=== PATIENT | female | born 1970 | race African-American/Black ===

== ENCOUNTER 2023-10-22 20:56 | Emergency (ER) | payer BC, OTHER, SELFPAY ==
[2023-10-22] VITALS (7 sets, daily range): BP systolic 133–144; BP diastolic 90–95; PULSE 65–96; RESP 13–18; TEMP 36.5–36.7; O2SAT 99–100
--- NOTE | ~2023-10-22 | XR_ITS ---
EXAMINATION: XR chest 2V Exam Date/Time: 10/22/2023 21:13 CDT HISTORY: cp Comparison: None. RESULT: Lines, tubes, and devices: None. Lungs and pleura: Clear. Cardiomediastinal silhouette: Unremarkable. Other: No acute osseous or upper abdominal finding. IMPRESSION: No acute cardiopulmonary process. Reviewed, dictated and finalized at location K.
--- NOTE | 2023-10-22 20:57 | ECG_ITS ---
Measurements Intervals [place] Rate: 86 P: 56 GA: 160 QRS: 2 QRSD: 85 T: 45 QT: 342 QTc: 410 Interpretive Statements SINUS RHYTHM NORMAL ECG NO PREVIOUS ECG AVAILABLE FOR COMPARISON Electronically Signed On 10-23-2023 6:23:42 CDT by Jacob Aleman D.O.
[2023-10-22 21:16] LABS: Basophils Percent Auto 0.5 % (0.2-1.2); Eosinophils Absolute Auto 0.1 K/mm3 (0-0.3); Eosinophils Percent Auto 1.6 % (0-4.4); Hematocrit 38.4 % (37.0-47.0); Hemoglobin 12.7 g/dL (12.0-15.0); Immature Granulocyte Absolute 0.01 K/mm3 (0.00-0.031); Immature Granulocyte Percent A 0.1 % (0-0.5); Lymphocytes Absolute Auto 2.93 K/mm3 (0.9-3.2); Mean Corpuscular HGB Conc 33.1 g/dl (32-36); Mean Corpuscular Hemoglobin 28.1 pg (26-34); Mean Platelet Volume 11.9 fl (7.4-10.4); Monocytes Absolute Auto 0.8 K/mm3 (0.1-0.6); Monocytes Percent Auto 10.3 % (2.6-8.5); Neutrophils Absolute Auto 3.6 K/mm3 (1.3-6.7); Neutrophils Percent Auto 48.5 % (45.5-73.1); Platelet Count Result 249 k/mm3 (150-375); Red Blood Count 4.52 M/mm3 (4.2-5.4); Red Cell Distribution Width 12.2 % (11.5-14.5); White Blood Count 7.5 K/mm3 (4.5-10.0)
[2023-10-22 21:27] LABS: Alanine Aminotransferase 23 U/L (6-35); Albumin Level 4.1 g/dL (3.5-5.1); Alkaline Phosphatase 100 U/L (38-126); Anion Gap 7 mmol/L (4-12); Aspartate Amino Transferase 27 U/L (14-36); Bilirubin,Total 0.4 mg/dL (0.2-1.3); Blood Urea Nitrogen 14 mg/dL (7-17); Calcium 9.2 mg/dL (8.4-10.2); Carbon Dioxide 26 mmol/L (22-30); Chloride 107 mmol/L (98-107); Estimated CRCL calculation 80 ml/min; Estimated Glomerular Filt Rate > 60; Glucose 101 mg/dL (65-110); Lipase 269 U/L (23-300); Potassium 3.7 mmol/L (3.4-5.0); Sodium 140 mmol/L (137-145)
[2023-10-22 21:36] LABS: INR 0.9; Prothrombin Time 12.6 Seconds (11.1-14.7)
[2023-10-22 21:37] LABS: Partial Thromboplastin Time 30.4 Seconds (22.3-36.8)
[2023-10-22 21:38] LABS: Troponin I < 0.012 ng/mL (0.000-0.034)
[2023-10-22] MEDS: Please add drug allergy info to patient profile. 1 EACH XX (23:41)
--- NOTE | 2023-10-23 | ECG_ITS ---
Measurements Intervals [place] Rate: 51 P: [place]: 0 QRS: 24 QRSD: 97 T: 18 QT: 418 QTc: 386 Interpretive Statements SINUS BRADYCARDIA WITH 2ND DEGREE AV BLOCK, MOBITZ TYPE I BASELINE ARTIFACT- I, II, AVR ABNORMAL ECG COMPARED TO ECG 10/22/2023 21:00:16 SINUS BRADYCARDIA NOW PRESENT 2ND DEGREE AV BLOCK NOW PRESENT Electronically Signed On 10-23-2023 8:18:40 CDT by Jacob Aleman D.O.
[2023-10-23 00:01] VITALS: PULSE 58; RESP 12
[2023-10-23 00:02] VITALS: BP 125/82; PULSE 70; RESP 19
[2023-10-23 00:15] VITALS: PULSE 66; RESP 19
[2023-10-23 00:17] VITALS: BP 165/83; PULSE 65; RESP 19; O2SAT 100
--- NOTE | 2023-10-23 00:18 | ED.CHESTPAIN ---
HPI - Chest Pain General Chief Complaint: Chest Pain Stated Complaint: chest pain Time Seen by Provider: 10/23/23 00:00 History of Present Illness HPI narrative: Patient is a 52-year-old female who presents to the emergency department this evening complaining of intermittent chest pain which lasts only a few seconds and then subsides. Patient currently denies any current chest pain. Patient denies any history of coronary artery disease and states that she had a clean cath in 2016. Patient does have a history of intermittent heart block, patient believes that it was either 1st degree AV block or second-degree Mobitz type 1. Patient states that she has worn a Holter monitor for few days and follows up with the assistant scientist, Dr. Hurd through [facility] and states that since then they did not feel the need to put her on any medications as she has been asymptomatic. Patient denies any near-syncopal episode, lightheadedness or dizziness. Patient is concerned about a blood clot as her mom was diagnosed with Stadol she denies any family history of blood clotting disorders and is unsure of why or what precipitated her mother's pulmonary emboli. Patient admits to mild shortness of breath that has been ongoing for a while and believes that it could be due to the fact that she gained a lot of weight this year. She is currently denying any additional symptoms including nausea or vomiting, abdominal pain, headaches, blurry visions, focal weakness, numbness and tingling. There are no other modifying, alleviating, or precipitating factors at this time. Related Data Allergies Allergy/AdvReac Type Severity Reaction Status Date / Time No Known Allergies Allergy Verified 10/22/23 21:04 Review of Systems Review of Systems: All systems are reviewed and are negative unless stated otherwise in the HPI. Exam Narrative: General: Alert, awake, afebrile, in no acute distress. HEENT: PERRL, no rhinorrhea, no post nasal drip, oropharynx clear. Neck: Trachea midline, no JVD, no lymphadenopathy. Cardiovascular: Regular rate and rhythm, no murmurs, rubs or gallops, no peripheral edema. Respiratory: Clear to auscultation bilaterally, no tachypnea, no wheezing, no rhonchi, no rubs, no respiratory distress. Abdomen: Soft, nontender, nondistended, no rebound, no guarding, no peritoneal signs. Musculoskeletal: No joint swelling or deformity, normal muscle tone. Skin: No rashes or petechia, no signs of infection. Psychiatric: Alert and oriented, normal behavior and judgment for situation. Neurological: Alert and oriented to person, place, and time. Follows all commands. No focal deficits, speech is clear and fluent. Course Vital Signs Vital signs: Vital Signs Temperature 97.7 F 10/22/23 21:00 Pulse Rate 96 10/22/23 21:00 Respiratory Rate 16 10/22/23 21:00 Blood Pressure 144/90 H 10/22/23 21:00 Pulse Oximetry 100 10/22/23 21:00 Oxygen Delivery Room Air 10/22/23 21:00 Temperature 98.1 F 10/23/23 01:52 Pulse Rate 77 10/23/23 01:52 Respiratory Rate 15 10/23/23 01:52 Blood Pressure 123/77 10/23/23 01:52 Pulse Oximetry 99 10/23/23 01:52 Oxygen Delivery Room Air 10/22/23 22:40 MDM - Chest Pain MDM Narrative Medical decision making narrative: The patient was evaluated by myself in the emergency department. History is obtained from patient who is an independent historian and physical exam was performed. External medical records were reviewed at this time. IV was established and pertinent tests were ordered. EKG was obtained which revealed sinus rhythm rate of 86 beats per minute. No ST changes, T wave inversions or evidence of acute ischemia. EKG was independently interpreted by me and is currently pending official cardiology read. Laboratory results obtained revealing no acute process. Two sets of troponins were obtained and noted to be negative and a D-dimer was also obtained and noted to be negative. During patie
--- NOTE | 2023-10-23 00:27 | ECG_ITS ---
Measurements Intervals [place] Rate: 64 P: 10 NV: 195 QRS: 7 QRSD: 89 T: 18 QT: 394 QTc: 407 Interpretive Statements SINUS RHYTHM NORMAL ECG COMPARED TO ECG 10/22/2023 21:00:16 NO SIGNIFICANT CHANGES Electronically Signed On 10-23-2023 6:27:50 CDT by Jacob Aleman D.O.
--- NOTE | 2023-10-23 00:28 | PC.NURSE ---
Per EDP Dr. Mahan repeat the three hour EKG on patient.
[2023-10-23 00:31] VITALS: PULSE 71; RESP 17
[2023-10-23 00:34] LABS: Troponin I < 0.012 ng/mL (0.000-0.034)
[2023-10-23 01:40] LABS: D Dimer 0.39 ug/mL (<0.48)
[2023-10-23 01:52] VITALS: BP 123/77; PULSE 77; RESP 15; TEMP 36.7; O2SAT 99
== END 2023-10-23 01:53 | disposition home or self-care (01) ==
PROVIDERS: Emergency Provider Emergency Medicine; PCP Internal Medicine
DX: R07.89 Other chest pain (principal); R00.1 Bradycardia, unspecified; I44.1 Atrioventricular block, second degree
CPT/HCPCS: 36415; 71046; 80053; 83690; 84484; 85025; 85380; 85610; 85730; 93005; 99284

== ENCOUNTER 2024-12-06 21:01 | Emergency (ER) | payer OTHER, SELFPAY ==
[2024-12-06] VITALS (8 sets, daily range): BP systolic 114–131; BP diastolic 74–93; PULSE 81–126; RESP 16–24; TEMP 37.1; O2SAT 94–100
--- NOTE | ~2024-12-06 | XR_ITS ---
EXAMINATION: XR chest 1V portable Exam Date/Time: 12/06/2024 21:24 CDT HISTORY: cp, nausea and vomiting Comparison: 10/22/2023. RESULT: Lines, tubes, and devices: None. Lungs and pleura: Clear. Cardiomediastinal silhouette: Stable. Other: No acute osseous or upper abdominal finding. IMPRESSION: No acute cardiopulmonary process. Reviewed, dictated and finalized at location K.
--- NOTE | 2024-12-06 21:02 | ECG_ITS ---
Test Date: 2024-12-06 21:07:49 Measurements Intervals [place] Rate: 120 P: 56 MD: 139 QRS: 0 QRSD: 89 T: 55 QT: 347 QTc: 492 Interpretive Statements SINUS TACHYCARDIA MINIMAL ST DEPRESSION [0.025+ mV ST DEPRESSION] ABNORMAL RHYTHM ECG No previous ECG available for comparison Electronically Signed On 12-07-2024 11:52:49 CDT by Ara Mcgee M.D.
--- OUTSIDE RECORDS SUMMARY | 2024-12-06 21:04 | XMS_ITS ---
Author Organization 1 OF Kaetlin jones DPM [facility] Address [address] [place] [address] Care Team Providers Care Assistant Finance Manager Name Role Phone Sylvia Celis Primary Care Provider Viji Cadet Unavailable [phone] REASON FOR VISIT Nail fungus Encounters Encounter Location Date Provider Diagnosis 1 OF Katelin Roy DPM [facility] [address] [place] [address] 06/17/2023 Viji Schneider Dermatophytosis, nail B35.1 Assessments Encounter Date Diagnosis (ICD Code) Assessment Notes Treatment Notes Treatment Clinical Notes Section Notes 06/17/2023 Dermatophytosis , nail (ICD-10 - B35.1) Plan Of Treatment No Information Progress Notes * Ritu FRANCODOB:1970 ( 54 yo F)Acc No.[id number]:06/17/2023 Progress Notes Patient: Ritu LOPEZ Provider: Bj Schneider DPM :1970 A ge:52 Y S ex:Female Date:06/17/2023 Address:[address] [place], [place] [address], [place] Pcp:Sylvia Celis Subjective: * Chief Complaints: * 1 . Nail fungus. * HPI: M A assisting with visit:: HPI/Rooming: . .... . P rimary reason for visit:: Follow-up: [age] y/o female RTO for f/u of d ermatophytosis. At last visit treatment consisted of r ecommended pt continue applying ciclopirox daily. Today patient reports . * Medical History: Objective: * Vitals: * Examination: G eneral Examination: Constitutional / Appearance: N o acute distress , Well nourished, Appropriate personal hygiene. Mental status: C ooperative, Oriented to person, place and time, Mood and affect: normal, Judgement and intellect: normal with appropriate response to questions. Shoes today: X XXX. Exam unchanged from prior visit: w ith no significant changes in appearance or condition of feet . Assessment: * Assessment: 1. D ermatophytosis, nail - B35.1 (Primary) Plan: * Treatment: * Images: * Electronic signature of Cheryl Schneider DPM on 12/06/2024 at 09:03 PM CDT Sign off status: Pending * Provider: Bj Schneider DPM Date: 08/17/2022 Generated for Chacha jauregui/Shilpa/Tomasz on: 0 12/06/2024 09:03 PM CDT History and Physical Notes * HPI (History of Present Illness) Category Sub-Category Detail Notes Category Not es Primary reason for visit: Follow-up: 52 y/o female RTO for f/u of dermatophytosis. At last visit treatment consisted of recommended pt continue applying ciclopirox daily. Today patient reports MA assisting with visit: HPI/Rooming: ..... Examination Category Sub-Category Detail Notes Category Not es General Examination Mental status: Cooperative, Oriented to person, place and time, Mood and affect: normal, Judgement and intellect: normal with appropriate response to questions Shoes today: XXXX Exam unchanged from prior visit: with no significant changes in appearance or condition of feet Constitutional / Appearance: No acute di stress , Well nourished, Appropriate personal hygiene
--- OUTSIDE RECORDS SUMMARY | 2024-12-06 21:04 | XMS_ITS | Clinical Summary ---
Author Organization [facility] [address] Address [address] [place] [address] Care Team Providers Care Supervisor Chemical Name Role Phone Unavailable Primary Care Provider Unavailabl e Social History Tobacco Use Types Packs/Day Years Used Date Smoking Tobacco: Never Assessed Comments Unknown Sex and Gender Information Value Date Recorded Sex Assigned at Not on file Legal Sex Female 11:55 PM CDT Gender Identity Not on file Sexual Orientation Not on file Plan of Treatment Health Maintenance Due Date Last Done Comments DTAP/TDAP/TD VACCINES (1 - Tdap) 12/05/1987 HEPATITIS B VACCINES (1 of 3 - 19+ 3-dose series) 11/24 HPV/Cotest (21-29) 1989 CERVICAL CANCER SCREENING 1998 HPV/Cotest (30-65) 1998 PAP SMEAR 1998 BREAST CANCER SCREENING 2008 COLORECTAL SCREENING 2013 Colorectal Cancer Screening 2013 FIT-DNA Q 3 years 2013 FIT/FOBT Q 1 year 2013 Flex Sig/CT Colonography Q 5 years 2013 ZOSTER VACCINE (1 of 2) 2018 INFLUENZA VACCINE (#1) 2024
--- OUTSIDE RECORDS SUMMARY | 2024-12-06 21:04 | XMS_ITS | Clinical Summary ---
Author Organization [facility] Address [address] [place] [address] Phone Care Team Providers Care Tractor Trailer Operator Name Role Phone Lian Barker MD Primary Care Pro vider Allergies No known active allergies Medications multivitamin tablet Take 1 tablet by mouth daily Active ergocalciferol, vitamin D2, 10 mcg (400 unit) tablet Take 1 tablet by mouth daily Active hydroCHLOROthiaz jose (HYDRODIURIL) 25 mg tablet Take 25 mg by mouth daily 04/06/2017 Active Active Problems No known active problems Immunizations Immunization Administration Dates Next Due Influenza, Trivalent, Split, Preservative Free, Intradermal 05/18/2014 Influenza, Unspecified 06/26/2018 Tdap 11/22/2011 Surgical History Surgery Date Site/Laterality Comments LAPAROSCOPIC TUBAL LIGATION Sterilization: Tubal ligation TONSILLECTOMY/ADENOIDECTOMY Tonsilitis: Tonsilectomy and adnoidectomy SECTION, LOW TRANSVERSE : C-sections x2 Medical History Medical History Date Comments Hypertension Hypertension Hx Other Medical Sterilization; Comments: JST 04/24/2014 - Failed tubal with subequent (IUP). ; Comme nts: JST 04/24/2014 - Tonsillitis Tonsilitis; Comm ents: JST 04/24/2014 - Family History Medical History Relation Name Comments Hypertension Mother Hypertension; Colon cancer Mother's Brother Cancer, col on; Colon cancer Mother's Sister Cancer, colo n; Relation Name Status Comments Mother Mother's Brother Mother's Sister Social History Tobacco Use Types Packs/Day Years Used Date Smoking Tobacco: Never Smokeless Tobacco: Never Alcohol Use Standard Drinks/Week Comments Yes 0 (1 standard drink = 0.6 oz pur e alcohol) Personal Safety Answer Date Recorded Getting School Help Needed Not on file 10/08 Comments No Sex and Gender Information Value Date Recorded Sex Assigned at Not on file 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 Gender Identity Not on file Sexual Orientation Not on file Obstetrics History Para Term AB IAB SAB Ectopic Multiple Livin g Live Births 6 3 1 1 3 3 Date Outcome GA Total Labor Labor/2nd/3rd Weight Sex Type Anes PTL Sandra A1 A5 Name Clin Para Para Para SAB Last Filed Vital Signs Vital Sign Reading Time Taken Comments Blood Pressure 120/70 11/13/2020 1:19 PM CDT Pulse - - Temperature - - Respiratory Rate - - Oxygen Saturation - - Inhaled Oxygen Concentration - - Weight 93 kg (205 lb) 11/13/2020 1:19 PM CDT Height 172.7 cm (5' 8 ) 11/13/2020 1:19 PM CDT Body Mass Index 31.17 11/13/2020 1:19 PM CDT Plan of Treatment Not on file [facility] [employer] [employer] Care Teams Tractor Trailer Operator Relationship Specialty Start Date End Date Lian Barker MD PCP - General 04/24/14
--- OUTSIDE RECORDS SUMMARY | 2024-12-06 21:04 | XMS_ITS | Referral Summary ---
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
--- OUTSIDE RECORDS SUMMARY | 2024-12-06 21:04 | XMS_ITS | Patient Health Record ---
Author Organization 1 OF Katelin jones [facility] Address [address] [place] [address] Care Team Providers Care Principal Clerk Name Role Phone Sylvia Celis Primary Care Provider Viji Cadet Unavailable [phone] Allergies No Known Allergies Reason For Referral No Information Medications Medication SIG (Take, Route, Fr equency, Duration) Notes Start Date End Date Status hydroCHLOROthiazide Active Vitamin D Active Ozempic Active Ketoconazole 2 % 1 application to exp osed toenail bed Topical Once a day for 90 days 10/02/2022 Active Ciclopirox 8 % 1 application to aff ected toenails daily. Every weekend, remove medicine with nail south korean remover. Topical Once a day for 120 days 10/02/2022 Active Social History Tobacco Use: Social History Observation Description Date Details (start date - stop date) Never Smoker NA - NA Tobacco Use/Smoking Question Answer Notes Are you a nonsmoker Plan Of Treatment No Information Insurance Providers Payer Name Payer Address Payer Phone Subscriber Number Group Number Insured Name Patient Relationship to Insured Coverage Start Date Coverage End Date [facility] [address] [place] [address] [id number] Ritu Franco Self - patient is the insured Medical (General) History Medical History History ICD Code HBP Surgical History Surgery Date(Month/Year) coronary catherization 2016
--- NOTE | 2024-12-06 21:29 | ED_ITS ---
HPI - General Adult General Chief complaint: Chest Pain Stated complaint: CP, N/V/D Time Seen by Provider: 12/06/24 21:11 History of Present Illness HPI narrative: This is a 54-year-old female presenting ED for acute onset of nausea vomiting diarrhea. Patient went to work at 7:30 a.m.. She immediately started have multiple episodes of nausea vomiting diarrhea. Associated symptoms weakness. She also had some sharp stabbing chest pain although she has been having that her entire life and that is not a new finding. She denies fevers chills shortness of breath or urinary symptoms. No sick contacts at home although she works at an [employer]. Related Data Allergies Allergy/AdvReac Type Severity Reaction Status Date / Time No Known Allergies Allergy Verified 10/22/23 21:04 Exam 2 Narrative: APPEARANCE: No apparent distress. Head: atraumatic. EYES: EOMI, NOSE: Atraumatic NECK: Trachea midline RESPIRATORY: No increased rate of breathing CTAB CARDIOVASCULAR: Tachycardic, no peripheral edema ABDOMINAL: Non-distended soft nontender MUSCULOSKELETAl: No obvious deformities NEURO: Alert. Moving 4/4 extremities SKIN:: Warm, dry. Normal color PSYCHIATRIC: Normal affect Course Vital Signs Vital signs: Vital Signs Temperature 98.7 F 12/06/24 21:03 Pulse Rate 126 H 12/06/24 21:03 Respiratory Rate 24 H 12/06/24 21:03 Blood Pressure 114/78 12/06/24 21:03 Pulse Oximetry 100 12/06/24 21:03 Oxygen Delivery Room Air 12/06/24 21:03 Temperature 98.7 F 12/06/24 21:03 Pulse Rate 90 12/07/24 00:40 Respiratory Rate 18 12/07/24 00:40 Blood Pressure 124/84 12/07/24 00:40 Pulse Oximetry 98 12/06/24 23:10 Oxygen Delivery Room Air 12/06/24 21:27 Medical Decision Making [facility] Narrative Medical decision making narrative: -Course: This is a 54-year-old female presenting sudden onset of nausea vomiting and diarrhea. She has also had intermittent sharp chest pains although that is chronic and has been evaluated multiple times by radiation control health physicist. Patient was tachycardic on arrival and given 2 L of normal saline. She was also given Zofran and Maalox. Patient's vital signs improved with fluids. Her workup including laboratory studies viral swabs, BNP, troponin and D-dimer and viral swabs were unremarkable. Chest x-ray was clear. Patient felt improved after fluids and antiemetics. She is now tolerating p.o.. She will be discharged on Zofran. Given return precautions. -DDX includes but is not limited to: Gastroenteritis, food poisoning, viral syndrome, acs, pe, pna Vital Signs Vital Signs: Vital Signs Temperature 98.7 F 12/06/24 21:03 Pulse Rate 126 H 12/06/24 21:03 Respiratory Rate 24 H 12/06/24 21:03 Blood Pressure 114/78 12/06/24 21:03 Pulse Oximetry 100 12/06/24 21:03 Oxygen Delivery Room Air 12/06/24 21:03 Temperature 98.7 F 12/06/24 21:03 Pulse Rate 90 12/07/24 00:40 Respiratory Rate 18 12/07/24 00:40 Blood Pressure 124/84 12/07/24 00:40 Pulse Oximetry 98 12/06/24 23:10 Oxygen Delivery Room Air 12/06/24 21:27 Lab Data 12/06/24 22:21 12/06/24 22:00 Labs: Lab Results 12/06/24 12/06/24 12/06/24 Range/Units 21:25 22:00 22:00 WBC (4.5-10.0) K/mm3 RBC (4.2-5.4) M/mm3 Hgb (12.0-15.0) g/dL Hct (37.0-47.0) % MCV (80-100) fl MCH (26-34) pg MCHC (32-36) g/dl RDW (11.5-14.5) % Plt Count (150-375) k/mm3 MPV (7.4-10.4) fl Immature Gran % (Auto) (0-0.5) % Neut % (Auto) (45.5-73.1) % Lymph % (Auto) (18.3-44.2) % [place] % (Auto) (2.6-8.5) % Eos % (Auto) (0-4.4) % Baso % (Auto) (0.2-1.2) % Lymph # (Auto) (0.9-3.2) K/mm3 [place] # (Auto) (0.1-0.6) K/mm3 Eos # (Auto) (0-0.3) K/mm3 Baso # (Auto) (0.0-0.1) K/mm3 Abs Immat Gran (auto) (0.00-0.031) K/mm3 Absolute Neuts (auto) (1.3-6.7) K/mm3 Absolute Nucleated RBC (0.0-0.012) K/mm3 Nucleated RBC % (0.0-0.2) % PT (11.1-14.7) Seconds INR APTT (22.3-36.8) Seconds D-Dimer Cancelled Sodium 136 L (137-145) mmol/L Potassium 3.9 (3.4-5.0) mmol/L Chloride 103 (98-107) mmol/L Carbon Dioxide 21 L (22-30) mmol/L Anion Gap 12 (4-12) mmol/L BUN 17 (7-17) mg/dL Creatinine 1.15 H (0.7-1.0) mg/dL Estim Creat Clear Calc 61 ml/min Estimated GFR 49 L (59 - ) Glucose 101 (65-110) mg/dL Calcium 9.6 (8.4-10.2) mg/dL Total Bilirubin 1.0 (0.2-1.3) mg/dL AST 39 H (14-36) U/L ALT 26 (6-35) U/L Alkaline Phosphatase 111 (38-126) U/L Troponin I < 0.012 (0.000-0.034) ng/mL NT-Pro-B Natriuret Pep < 20 < 20 (19.9-100) pg/mL Total Protein 9.0 H (6.3-8.2) g/dL Albumin 4.9 (3.5-5.1) g/dL Lipase 151 (23-300) U/L Influenza A (RT-PCR) (Negative) Influenza B (RT-PCR) (Negative) RSV (RT-PCR) (Negative) SARS-CoV-2 RNA (RT-PCR) (Negative) 12/06/24 12/06/24 12/07/24 Range/Units 22:21 22:55 01:05 WBC 7.3 (4.5-10.0) K/mm3 RBC 5.14 (4.2-5.4) M/mm3 Hgb 14.0 (12.0-15.0) g/dL Hct 42.8 (37.0-47.0) % MCV 83.3 (80-100) fl MCH 27.2 (26-34) pg MCHC 32.7 (32-36) g/dl RDW 12.7 (11.5-14.5) % Plt Count 217 (150-375) k/mm3 MPV 11.8 H (7.4-10.4) fl Immature Gran % (Auto) 0.4 (0-0.5) % Neut % (Auto) 80.9 H (45.5-73.1) % Lymph % (Auto) 13.7 L (18.3-44.2) % [place] % (Auto) 4.5 (2.6-8.5) % Eos % (Auto) 0.4 (0-4.4) % Baso % (Auto) 0.1 L (0.2-1.2) % Lymph # (Auto) 1.00 (0.9-3.2) K/mm3 [place] # (Auto) 0.3 (0.1-0.6) K/mm3 Eos # (Auto) 0.0 (0-0.3) K/mm3 Baso # (Auto) 0.0 (0.0-0.1) K/mm3 Abs Immat Gran (auto) 0.03 (0.00-0.031) K/mm3 Absolute Neuts (auto) 5.9 (1.3-6.7) K/mm3 Absolute Nucleated RBC 0.000 (0.0-0.012) K/mm3 Nucleated RBC % 0.0 (0.0-0.2) % PT 13.6 (11.1-14.7) Seconds INR 1.0 APTT 28.7 (22.3-36.8) Seconds D-Dimer 0.55 H Sodium (137-145) mmol/L Potassium (3.4-5.0) mmol/L Chloride (98-107) mmol/L Carbon Dioxide (22-30) mmol/L Anion Gap (4-12) mmol/L BUN (7-17) mg/dL Creatinine (0.7-1.0) mg/dL Estim Creat Clear Calc ml/min Estimated GFR (59 - ) Glucose (65-110) mg/dL Calcium (8.4-10.2) mg/dL Total Bilirubin (0.2-1.3) mg/dL AST (14-36) U/L ALT (6-35) U/L Alkaline Phosphatase (38-126) U/L Troponin I < 0.012 (0.000-0.034) ng/mL NT-Pro-B Natriuret Pep (19.9-100) pg/mL Total Protein (6.3-8.2) g/dL Albumin (3.5-5.1) g/dL Lipase (23-300) U/L Influenza A (RT-PCR) Negative (Negative) Influenza B (RT-PCR) Negative (Negative) RSV (RT-PCR) Negative (Negative) SARS-CoV-2 RNA (RT-PCR) Negative (Negative) Discharge Plan Discharge Clinical Impression: Nausea & vomiting Patient Disposition: Home Condition: Stable Instructions: Antibiotic Form, Gastroenteritis (DC) Additional Instructions: You were seen in the emergency department for nausea vomiting and diarrhea. Your workup here was reassuring. Please make sure you are drinking plenty of fluids. Use Zofran for nausea. If you develop any worsening symptoms, fevers, severe abdominal pain or feel you are getting worse please return to the ED for re-evaluation Patient Language: Comoran Prescriptions: New ondansetron 4 mg tablet,disintegrating 4 mg PO Q8H PRN (Reason: nausea and vomiting) Qty: 30 0RF Follow-up/Referrals: Vimal,MD Sylvia [Primary Care Provider] -
--- OUTSIDE RECORDS SUMMARY | 2024-12-06 21:47 | XMS_ITS | Clinical Summary ---
Author Organization [facility] [address] Address [address] [place] [address] Care Team Providers Care Platinum And Palladium Kettle Tender Name Role Phone Unavailable Primary Care Provider [...]
--- OUTSIDE RECORDS SUMMARY | 2024-12-06 21:47 | XMS_ITS | Clinical Summary ---
Author Organization [facility] Address [address] [place] [address] Care Team Providers Care Drying Unit Felting Machine Operator Name Role Phone Yamil Whyte MD Unavailable [phone] Sylvia Celis MD Primary Care Provider [phone] Allergies Active Allergy Reactions Criticality Noted Date Comments Amlodipine Other (see comment) 10/13/2023 Edema, mouth changes and red eyes Losartan Other (see comment) 10/23/2023 Numbness of mouth and tongue Medications vitamin D3, cholecalciferol, 1000 UNIT Tab tablet Take 1 tablet (1,000 Units total) by mouth daily. Active tirzepatide (ZEPBOUND) 2.5 MG/0.5ML injectionIndicati ons:Weight Loss Inject 2.5 mg into the skin once a week. Indications : Weight Loss 2 mL 08/31/2024 Active hydroCHLOROthiazi de (HYDRODIURIL) 25 MG tabletIndications :Essential hypertension Take 1 tablet (25 mg total) by mouth every morning. 90 tablet 1 08/31/2024 Active isosorbide mononitrate ER (IMDUR) 30 MG 24 hr tabletIndications :Essential hypertension Take 1 tablet (30 mg total) by mouth daily. 90 tablet 1 08/31/2024 Active Active Problems Problem Noted Date Diagnosed Date Chest pain 03/31/2024 Encounter for screening for malignant neoplasm o f colon 12/30/2022 Overview (12/30/2022): Added automatically from request for surgery [id number] Obesity (BMI 30-39.9) 04/14/2012 Essential hypertension Resolved Problems Problem Noted Date Diagnosed Date Resolved Date Chest pain 02/25/2017 05/18/2023 Valvular heart disease 09/23 Immunizations Immunization Administration Dates Next Due Influenza (Generic) 06/26/2018,05/18/2014 Influenza Adult (Generic) 05/25/2023,05/15/2022 MODERNA COVID-19 (12+) MRNA, LNP-S, PF, 100 MCG/ 0.5 ML DOSE 09/03/2020,08/01/2020 Tdap (Boostrix) 06/30/2022 Tdap (Generic) 11/22/2011 Family History Medical History Relation Comments Colon Cancer Maternal Aunt IN HER 60'S Diabetes Maternal Grandmother pacemaker Maternal Grandmother Colon Cancer Maternal Uncle IN HIS 60'S Hypertension Mother No significant family history of CAD Other 1 Breast Cancer Other 2 IN HER 40'S Relation Status Comments Maternal Aunt Maternal Grandmother Maternal Uncle Mother Other 1 Other 2 Social History Tobacco Use Types Packs/Day Years Used Date Smoking Tobacco: Never Smokeless Tobacco: Never Tobacco Cessation:Counseling Given: Yes Comments:Counseled by Dr Celis Alcohol Use Standard Drinks/Week Comments Yes 0 (1 standard drink = 0.6 oz pur e alcohol) occasional monthly PHQ-2 Answer Date Recorded Patient Health Questionnaire-2 Score 1 08/31/2024 Comments No Sex and Gender Information Value Date Recorded Sex Assigned at Female 08/29/2024 2:06 PM ROLL SKINNER Legal Sex Female 9:28 AM CDT Gender Identity Female 06/30/2022 9:25 AM ROLL SKINNER Sexual Orientation Straight 06/30/2022 9: 25 AM ROLL SKINNER 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 on file Last Filed Vital Signs Vital Sign Reading Time Taken Comments Blood Pressure 111/76 08/31/2024 11:18 AM ROLL SKINNER Pulse 65 08/31/2024 11:18 AM ROLL SKINNER Temperature 36 C (96.8 F) 08/31/2024 11:18 AM ROLL SKINNER Respiratory Rate 18 08/31/2024 11:1 8 AM ROLL SKINNER Oxygen Saturation 98% 08/31/2024 11: 18 AM ROLL SKINNER Inhaled Oxygen Concentration - - Weight 104.7 kg (230 lb 12.8 oz) 2024 11:18 AM ROLL SKINNER Height 172.7 cm (5' 8 ) 08/31/2024 11:1 8 AM ROLL SKINNER Body Mass Index 35.09 08/31/2024 11:18 AM ROLL SKINNER Plan of Treatment Upcoming Encounters Date Type Department Care Team (Late st Contact Info) Description 02/28/2025 10:40 AM CDT Office Visit [facility] [place] [address] [place] [address] [address] [place] [address] Sylvia Celis MD [address] [facility] [address] [place] [address] Health Maintenance Due Date Last Done Comments Hepatitis B Vaccines (1 of 3 - 19+ 3-dose series) 12/05/1987 Pneumococcal Vaccine: 50+ Years (1 of 1 - PCV) 2018 Zoster Vaccines (1 of 2) 2018 Cervical Cancer Screening Pap Smear (Age 30 to 64) Every 3 Years 02/15/2021 02/15/2018 COVID-19 Vaccine ( season) 2024 09/03/2020, 08/01/2020 Mammogram Screening 09/10/2024 09/10/2022, 04/09/2020, 03/26/2020, Additional history exists Annual Physical 08/31/2025 08/31/2024, 11/2023, 06/30/2022 Cervical Cancer Screening Pap with HPV Testing (Age 30 to 64) Every 5 Years 11/13/2025 11/13/2020, 02/15/2018 Cervical Cancer Screening with HPV 11/13/2025 DTaP, Tdap and Td Vaccines (3 - Td or Tdap) 06/30/2032 06/30/2022, 11/22/2011 Colorectal Cancer Screening Colonoscopy (10 Years) 02/24/2033 02/24/2023, 02/24/2023, 02/24/2023 Hepatitis C Completed 06/30/2022 PHQ-2 (Physician [place]) Completed 08/31/2024 Meningococcal B Vaccine Aged Out No l onger eligible based on patient's age to complete this topic Meningococcal Vaccine Aged Out No diamante olive eligible based on patient's age to complete this topic RSV Immunizations Under 20 Months Aged Out No longer eligible based on patient's age to complete this topic Goals Goal Patient Goal Type Associated Problems Recent Progress Patient-Stated? Author Consistently take medications as Prescribed General No Morteza Gonzales RN Medical Devices Implanted Type Area Business Process Associate Device Identifier Shelf Expiration Date Model / Serial / Lot Clip Resolution 360 Deg 2.8mm X 235cm - [id number] Implanted:Qty: 1 on 02/24/2023 by Ashish Suarez MD at [facility] Clip Implant School Admissions [id number] 08/27/2025 [id number] / / [id number] Procedures Procedure Name Priority Date/Time Associated Diagnosis Comments COLONOSCOPY Routine 02/24/2023 11:57 AM CDT MG SCREENING W FELIZ MATTHEW DIGI Routine 09/10/2022 1:38 PM ROLL SKINNER Encounter for screening mammogram for malignant neoplasm of breast HEPATITIS C ANTIBODY Routine 06/30/2022 2:25 PM ROLL SKINNER Annual physical exam Establishing care with new doctor, encounter for Encounter for hepatitis C screening test for low risk patient OUTSIDE CYTOPATH CERV/VAG INTERPRET (PAP) Routine 11/13/2020 from Last 3 Months or Most Recently Relevant to Health Maintenance Results * MG SCREENING W FELIZ MATTHEW DIGI (09/10/2022 1:38 PM ROLL SKINNER) Anatomical Region Laterality Modality Breast Bilateral Mammography 09/10/2022 2:57 PM ROLL SKINNER Narrative 09/10/2022 2:59 PM ROLL SKINNER Examination: Digital bilateral screening mammogram with 3D Tomosynthesis Exam Date/Time: 09/10/2022 1:13 PM Reason For Exam: screening No prior biopsy. No personal history of breast cancer. No first-degree relatives with breast cancer. No current complaints. Comparison: 03/26/2020 08/31/2017 05/30/2016 mammograms Technique: Digital screening mammography of both breasts was performed in addition to 3-D Tomosynthesis technique. This study was read with the assistance of a computer-aided detection system. Tissue density: There are scattered areas of fibroglandular density. Findings: Stable intramammary lymph node in the far lateral mid depth tissue of the right breast. Multiple mole markers on the left. Overall parenchymal pattern unchanged from prior studies. There is no new focal asymmetry, dominant mass lesion, area of skin thickening, or cluster of suspicious appearing calcifications in either breast to suggest malignancy. ===== IMPRESSION: ===== 1. Stable mammographic appearance with no new findings to suggest malignancy in either breast. Assessment: ACR BI-RADS 2 - BENIGN FINDING(S) Recommendation: 1:Routine Screening Bilateral Comments: Ordered By: SYLVIA CELIS Interpreted By: Edgar Tillman MD, 09/10/2022 2:57 PM Sylvia Celis MD MAMMO Final Result * HEPATITIS C ANTIBODY ([facility] ONLY) (06/30/2022 2:25 PM ROLL SKINNER) HEPATITIS C AB NON-REACTI VE NON-REACT TISH 07/02/2022 1:44 PM ROLL SKINNER [facility] Comment: ANTIBODIES TO HCV NOT DETECTED. DOES NOT EXCLUDE THE POSSIBILITY OF EXPOSURE TO HCV. 06/30/2022 2:25 PM ROLL SKINNER Sylvia Celis MD LABORATORY Final Result Performing Organization Address [facility] Co de Phone Number [facility] [address] [place] [address], [id number] * PAP SMEAR WITH HPV (11/13/2020) 11/13/2020 Doc [facility] Scanned SCANNING Final Resu lt [facility] ONBASE from Last 3 Months or Most Recently Relevant to [place] [address] [employer] Advance Directives * Full Code (Latest Code Status on File) Date Activated Date Inactivated Comments 03/31/2024 6:15 AM 03/31/2024 5:34 PM * Full Code Date Activated Date Inactivated Comments 12/17/2020 5:07 PM 12/18/2020 9:08 PM Care Teams Drying Unit Felting Machine Operator Relationship Specialty Start Date End Date Sylvia Celis MD [address] [facility] [address] [place] [address] PCP - General INTERNAL MEDICINE 06/30/22 Yamil Whyte MD [facility] [address] [place] [address] Jameel Roll On Worker CARDIOVASCULAR DISEASE 02/24/17
--- OUTSIDE RECORDS SUMMARY | 2024-12-06 21:47 | XMS_ITS | Encounter Summary ---
Author Organization [facility] Address [address] [place] [address] Care Team Providers Care Building Insulation Supervisor Name Role Phone Yamil Whyte MD Unavailable [phone] Sylvia Celis MD Primary Care Provider [phone] Encounter Details Date Type Department Care Team (Late st Contact Info) Description 07/28/2024 MyChart Message Enc [facility] Medical [facility] Multispecialty Care - [place] [address] [address] [place] [address] Sylvia Celis MD [address] [place] [address] [address] [place], [place] [id number] Zepbound Social History Tobacco Use Types Packs/Day Years Used Date Smoking Tobacco: Never Smokeless Tobacco: Never Comments:Counseled by Dr Jazmyn cohen Alcohol Use Standard Drinks/Week Comments Yes 0 (1 standard drink = 0.6 oz pur e alcohol) occasional monthly PHQ-2 Answer Date Recorded Patient Health Questionnaire-2 Score 0 08/31/2023 Comments No Sex and Gender Information Value Date Recorded Sex Assigned at Female 08/29/2024 2:06 PM CYLINDER DIE MACHINE OPERATOR Legal Sex Female 9:28 AM CDT Gender Identity Female 06/30/2022 9:25 AM CYLINDER DIE MACHINE OPERATOR Sexual Orientation Straight 06/30/2022 9: 25 AM CYLINDER DIE MACHINE OPERATOR 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 on file documented as of this encounter Functional Status * Are you deaf or do you have serious difficulty hearing Answer Date of Assessment Author Status No 03/31/2024 8:07 AM CDT Yaa Soria RN Active * Are you blind or do you have serious difficulty seeing, even when wearing glasses? Answer Date of Assessment Author Status No 03/31/2024 8:07 AM Yaa Johnson RN Active * Do you have serious difficulty walking or climbing stairs? Answer Date of Assessment Author Status No 03/31/2024 8:07 AM CDT Yaa Soria RN Active * Do you have difficulty dressing or bathing? Answer Date of Assessment Author Status No 03/31/2024 8:07 AM CDT Yaa Soria RN Active * Because of a physical, mental, or emotional condition, do you have difficulty doing errands alone such as visiting a doctor's office or shopping? Answer Date of Assessment Author Status No 03/31/2024 8:07 AM Yaa Johnson RN Active documented as of this encounter Mental Status * Because of a physical, mental, or emotional condition, do you have serious difficulty concentrating, remembering, or making decisions? Answer Entry Date Author Status No 03/31/2024 8:07 AM Yaa Johnson RN Active documented in this encounter Plan of Treatment Upcoming Encounters Date Type Department Care Team (Late st Contact Info) Description 02/28/2025 10:40 AM CDT Office Visit [facility] Medical Group Multispecialty Care [place] [address] [address] [place] [address] Sylvia Celis MD [address] [place] [address] documented as of this encounter Goals Goal Patient Goal Type Associated Problems Recent Progress Patient-Stated? Author Consistently take medications as Prescribed General No Morteza Gonzales RN documented as of this encounter Visit Diagnoses Not on filedocumented in this encounter Additional Health Concerns Assessment Noted Time PHQ-9 Depression Total Score: 2 08/31/19 24 4:36 PM CYLINDER DIE MACHINE OPERATOR documented as of this encounter Care Teams Building Insulation Supervisor Relationship Specialty Start Date End Date Sylvia Celis MD [address] [place] [address] PCP - General INTERNAL MEDICINE 06/30/22 Yamil Whyte MD [facility]. [place] [address] [place], [place] [id number] [place] Meat Stocker CARDIOVASCULAR DISEASE 02/24/17 documented as of this encounter
--- OUTSIDE RECORDS SUMMARY | 2024-12-06 21:47 | XMS_ITS | Encounter Summary ---
Author Organization [facility] Address [address] [place] [address] Care Team Providers Care Second Facing Baster Name Role Phone Yamil Whyte MD Unavailable [phone] Sylvia Celis MD Primary Care Provider [phone] Encounter Details Date Type Department Care Team (Late st Contact Info) Description 09/21/2023 MyCRetevot Message Enc [facility] Medical [facility] Multispecialty Care - [place] [address] [address] [place] [address] Sylvia Celis MD [address] [place] [address] [address] [place] [address] Hyzaar Social History Tobacco Use Types Packs/Day Years [...] Sex Assigned at Female 08/29/2024 2:06 PM [facility] [employer] LAB TECHNICIAN Legal Sex Female 9:28 AM CDT Gender Identity Female 06/30/2022 9:25 AM [facility] [employer] [facility] TECHNICIAN Sexual Orientation Straight 06/30/2022 9: 25 AM [facility] TECHNICIAN 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 on file documented as of this encounter Functional Status * RETIRED Are you deaf or do you have serious difficulty hearing Answer Date of Assessment Author Status No 12/17/2020 5:27 PM CDT Activ e * RETIRED Are you blind or do you have serious difficulty seeing, even when wearing glasses? Answer Date of Assessment Author Status No 12/17/2020 5:27 PM CDT Activ e * Do you have serious difficulty walking or climbing stairs? Answer Date of Assessment Author Status No 12/17/2020 5:27 PM CDT Hermelinda Brown RN Active * Do you have difficulty dressing or bathing? Answer Date of Assessment Author Status No 12/17/2020 5:27 PM CDT Hermelinda Brown RN Active * Because of a physical, mental, or emotional condition, do you have difficulty doing errands alone such as visiting a doctor's office or shopping? Answer Date of Assessment Author Status No 12/17/2020 5:27 PM CDT Hermelinda Brown RN Active documented as of this encounter Mental Status * Because of a physical, mental, or emotional condition, do you have serious difficulty concentrating, remembering, or making decisions? Answer Entry Date Author Status No 12/17/2020 5:27 PM CDT Hermelinda Brown RN Active documented in this encounter Plan of Treatment Upcoming Encounters Date Type Department Care Team (Late st Contact Info) Description 02/28/2025 10:40 AM CDT Office Visit [facility] Multispecialty Care - [place] [address] [address] [place] [address] Sylvia Celis MD [address] [place] [address] documented as of this encounter Goals Goal Patient Goal Type Associated Problems Recent Progress Patient-Stated? Author Consistently take medications as Prescribed General No Morteza Gonzales RN documented as of this encounter Visit Diagnoses Not on filedocumented in this encounter Additional Health Concerns Infection Onset Date Last Indicated Resolved Time COVID-19 Rule Out 03/31/2024 03/31/2024 03/31/2024 3:02 AM CDT Assessment Noted Time PHQ-9 Depression Total Score: 2 08/31/19 4:36 PM [facility] TECHNICIAN documented as of this encounter Care Teams Second Facing Baster Relationship Specialty Start Date End Date Sylvia Celis MD [address] [facility] [address] [place] [address] PCP - General INTERNAL MEDICINE 06/30/22 Yamil Whyte MD [facility]. [facility] [address] [place] [address] [place] Regional Training Manager CARDIOVASCULAR DISEASE 02/24/17 documented as of this encounter
--- OUTSIDE RECORDS SUMMARY | 2024-12-06 21:47 | XMS_ITS | Encounter Summary ---
Author Organization [facility] Address [address] [place] [address] Care Team Providers Care Beef Cattle Specialist Name Role Phone Yamil Whyte MD Unavailable [phone] Sylvia Celis MD Primary Care Provider [phone] Encounter Details Date Type Department Care Team (Late st Contact Info) Description 11/28/2022 kalideat Message Enc [facility] Medical Group Multispecialty Care - [place] [address] [address] [place] [address] [place] [address] [place] [address] [address] [place] [address] Colonoscopy Social History Tobacco Use Types Packs/Day Years Used Date Smoking Tobacco: Never Smokeless Tobacco: Never Comments:Counseled by Dr Jazmyn cohen Alcohol Use Standard Drinks/Week Comments Yes 0 (1 standard drink = 0.6 oz pur e alcohol) occasional monthly PHQ-2 Answer Date Recorded PHQ-2 Score - If the patient scores above 3, please move on to questions 3-9 0 06/30/2022 Comments No Sex and Gender Information Value Date Recorded Sex Assigned at Female 08/29/2024 2:06 PM HEALTHCARE ADMINISTRATION INTERNSHIP Legal Sex Female 9:28 AM CDT Gender Identity Female 06/30/2022 9:25 AM HEALTHCARE ADMINISTRATION INTERNSHIP Sexual Orientation Straight 06/30/2022 9: 25 AM HEALTHCARE ADMINISTRATION INTERNSHIP Occupation Industry Job Start Date Job End [...] Description 02/28/2025 10:40 AM CDT Office Visit [facility] Medical Group Multispecialty Care - [place] [address] [address] [place] [address] Sylvia Celis MD [address] [place] [address] documented as of this encounter Goals Goal Patient Goal Type Associated Problems Recent Progress Patient-Stated? Author Consistently take medications as Prescribed General No Morteza Gonzales RN documented as of this encounter Visit Diagnoses Not on filedocumented in this encounter Additional Health Concerns Infection Onset Date Last Indicated Resolved Time COVID-19 Rule Out 03/31/2024 03/31/2024 03/31/2024 3:02 AM CDT documented as of this encounter Care Teams Beef Cattle Specialist Relationship Specialty Start Date End Date Sylvia Celis MD [address] [facility] [address] [place] [address] PCP - General INTERNAL MEDICINE 06/30/22 Yamil Whyte MD [facility] [address] [place] [address] [place] Fittings Finisher CARDIOVASCULAR DISEASE 02/24/17 documented as of this encounter
--- OUTSIDE RECORDS SUMMARY | 2024-12-06 21:47 | XMS_ITS | Encounter Summary ---
Author Organization [facility] Address [address] [place] [address] Care Team Providers Care System Configuration Specialist Name Role Phone Yamil Whyte MD Unavailable [phone] Sylvia Cleis MD Primary Care Provider [phone] Encounter Details Date Type Department Care Team (Late st Contact Info) Description 11/27/2022 Lyatisst Message Enc [facility] Medical Group Multispecialty Care - [place] [address] [address] [place] [address] [place] [address] [place] [address] [address] [place] [address] Colonoscopy Social History Tobacco Use [...] Sex Assigned at Female 08/29/2024 2:06 PM TRANSFORMER COIL WINDER Legal Sex Female 9:28 AM CDT Gender Identity Female 06/30/2022 9:25 AM TRANSFORMER COIL WINDER Sexual Orientation Straight 06/30/2022 9: 25 AM TRANSFORMER COIL WINDER Occupation Industry Job Start Date Job End [...] Description 02/28/2025 10:40 AM CDT Office Visit [facility] Medical Group Multispecialty Care - [place] [address] [address] [place] [address] Sylvia Celis MD [address] [place] [address] documented as of this encounter Goals Goal [...] documented as of this encounter Care Teams System Configuration Specialist Relationship Specialty Start Date End Date Sylvia Celis MD [address] [facility] [address] [place] [address] PCP - General INTERNAL MEDICINE 06/30/22 Yamil Whyte MD [facility] [address] [place] [address] [place] Manager Investment CARDIOVASCULAR DISEASE 02/24/17 documented as of this encounter
--- OUTSIDE RECORDS SUMMARY | 2024-12-06 21:47 | XMS_ITS | Encounter Summary ---
Author Organization [facility] Address [address] [place] [address] Care Team Providers Care Still Tender Name Role Phone Yamil Whyte MD Unavailable [phone] Sylvia Celis MD Primary Care Provider [phone] Encounter Details Date Type Department Care Team (Late st Contact Info) Description 01/15/2024 Ranovust Message Enc [facility] Medical Group Multispecialty Care - [place] [address] [address] [place] [address] Sylvia Celis MD [address] [place] [address] [address] [place] [address] Xray Social History Tobacco Use Types Packs/Day Years [...] Sex Assigned at Female 08/29/2024 2:06 PM CIVIL ENGINEERING TECHNICIAN Legal Sex Female 9:28 AM CDT Gender Identity Female 06/30/2022 9:25 AM CIVIL ENGINEERING TECHNICIAN Sexual Orientation Straight 06/30/2022 9: 25 AM CIVIL ENGINEERING TECHNICIAN Occupation Industry Job Start Date Job [...] Description 02/28/2025 10:40 AM CDT Office Visit [facility] Multispecialty Care - [place] [address] [address] [place] [address] Sylvia Celis MD [address] [place] [address] documented as of this encounter Goals Goal [...] Depression Total Score: 2 08/31/19 4:36 PM CIVIL ENGINEERING TECHNICIAN documented as of this encounter Care Teams Still Tender Relationship Specialty Start Date End Date Sylvia Celis MD [address] [facility] [address] [place] [address] PCP - General INTERNAL MEDICINE 06/30/22 Yamil Whyte MD [facility]. [facility] [address] [place] [address] [place] Coach Cleaner CARDIOVASCULAR DISEASE 02/24/17 documented as of this encounter
--- OUTSIDE RECORDS SUMMARY | 2024-12-06 21:47 | XMS_ITS | Encounter Summary ---
Author Organization [facility] Address [address] [place] [address] Care Team Providers Care Civil Cad Designer Name Role Phone Yamil Whyte MD Unavailable [phone] Sylvia Celis MD Primary Care Provider Encounter Details Date Type Department Care Team (Late st Contact Info) Description 09/03/2023 Chicory Message Enc [facility] Medical Group Multispecialty Care - [address] [place] [address] Mychart, [facility] Provider Neli Social History Tobacco Use Types Packs/Day Years [...] Sex Assigned at Female 08/29/2024 2:06 PM CAKE ICER AND PACKER Legal Sex Female 9:28 AM CDT Gender Identity Female 06/30/2022 9:25 AM CAKE ICER AND PACKER Sexual Orientation Straight 06/30/2022 9: 25 AM CAKE ICER AND PACKER Occupation Industry Job Start Date Job End [...] Description 02/28/2025 10:40 AM CDT Office Visit [facility] Medical Group Multispecialty [facility] [place] [address] [address] [place] [address] Sylvia Celis MD [address] [place] [address] documented as of this encounter Goals Goal [...] Total Score: 2 08/31/19 24 4:36 PM CAKE ICER AND PACKER documented as of this encounter Care Teams Civil Cad Designer Relationship Specialty Start Date End Date Sylvia Celis MD [address] [place] [id number] PCP - General INTERNAL MEDICINE 06/30/22 Yamil Whyte MD [facility] [address] [place] [address] [place] Napper Tender CARDIOVASCULAR DISEASE 02/24/17 documented as of this encounter
--- OUTSIDE RECORDS SUMMARY | 2024-12-06 21:47 | XMS_ITS | Encounter Summary ---
Author Organization [facility] Address [address] [place] [address] Care Team Providers Care French Binder Name Role Phone Yamil Whyte MD Unavailable Lian Barker MD Primary Care Provider None, Provider Primary Care Provider Unavaila Laurel Rain MD Primary Care Provider Sylvia Celis MD Primary Care Provider [phone] Encounter Details Date Type Department Care Team (Late st Contact Info) Description 04/07/2017 Abstract [facility] AT [address] [id number] Haroon Diaz MA Social History Tobacco Use Types Packs/Day Years Used Date Smoking Tobacco: Never Smokeless Tobacco: Never Alcohol Use Standard Drinks/Week Comments Yes 0 (1 standard drink = 0.6 oz pur e alcohol) occasional monthly Comments Unknown Sex and Gender Information Value Date Recorded Sex Assigned at Female 08/29/2024 2:06 PM PHOTOGRAPHIC INTELLIGENCE OFFICER Legal Sex Female 9:28 AM CDT Gender Identity Female 06/30/2022 9:25 AM PHOTOGRAPHIC INTELLIGENCE OFFICER Sexual Orientation Straight 06/30/2022 9: 25 AM PHOTOGRAPHIC INTELLIGENCE OFFICER 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 on file documented as of this encounter Plan of Treatment Upcoming Encounters Date Type Department Care Team (Late st Contact Info) Description 02/28/2025 10:40 AM CDT Office Visit [facility] Medical Group Multispecialty [address] [place] [address] Sylvia Celis MD [address] [facility] [address] [place] [address] documented as of this encounter Procedures Procedure Name Priority Date/Time Associated Diagnosis Comments CBC (OUTSIDE LAB) Routine 02/26/2017 BASIC METABOLIC PANEL Routine 02/26/2017 LIPID PANEL Routine 02/26/2017 documented in this encounter Results * LIPID PANEL (02/26/2017) CHOLESTEROL 97 HDL 38 TRIGLYCERIDES 73 NON HDL CHOLESTEROL 59 LDL (CALCULATED) 44 02/26/2017 us Doc [facility] Abstract LABORATORY Final Result * BASIC METABOLIC PANEL (02/26/2017) SODIUM S/P/B 140 POTASSIUM S/P/B 3.7 CO2 25 CHLORIDE S/P/B 103 GLUCOSE 98 mg/dL CALCIUM S/P/B 9.2 BUN 11 CREATININE S/P/B 0.91 0.5 - 1.0 EGFR AFR. AMER. >60 <=90 EGFR NON-AFR. AMER. >60 <=90 02/26/2017 us Doc [facility] LABORATORY Final Result * CBC (OUTSIDE LAB) (02/26/2017) WBC 6.1 HGB 12.4 HCT 36.1 PLT 202 02/26/2017 us Doc [facility] Abstract LAB-OUTSIDE/ABSTRACTED Final Result documented in this encounter Visit Diagnoses Not on filedocumented in this encounter Additional Health Concerns Infection Onset Date Last Indicated Resolved Time COVID-19 Rule Out 03/31/2024 03/31/2024 03/31/2024 3:02 AM CDT documented as of this encounter Care Teams French Binder Relationship Specialty Start Date End Date Lian Barker MD Three [facility]. [address] [place] [address] PCP - General FAMILY PRACTICE 03/27/17 06/10/22 None, Provider, PCP - General UNKNOWN PHYSICIAN SPECIALTY 06/11/22 06/11/22 [place] [address] [facility] [address] [place] [address] PCP - General INTERNAL MEDICINE 06/12/22 06/29/22 Sylvia Celis MD [address] [facility] [address] [place] [address] PCP - General INTERNAL MEDICINE 06/30/22 Yamil Whyte MD Three [facility]. [address] [place] [address] Jameel Drilling Field Specialist CARDIOVASCULAR DISEASE 02/24/17 documented as of this encounter
--- OUTSIDE RECORDS SUMMARY | 2024-12-06 21:47 | XMS_ITS | Encounter Summary ---
Author Organization [facility] Address [address] [place] [address] Care Team Providers Care Reservation Clerk Name Role Phone Yamil Whyte MD Unavailable [phone] Sylvia Celis MD Primary Care Provider [phone] Encounter Details Date Type Department Care Team (Late st Contact Info) Description 09/22/2022 Websense Message Enc [facility] Medical Group Multispecialty Care - [address] [place] [address] Lightera, [facility] Provider lab work Social History Tobacco Use Types Packs/Day Years [...] Sex Assigned at Female 08/29/2024 2:06 PM TOEING STOCKINGS Legal Sex Female 9:28 AM CDT Gender Identity Female 06/30/2022 9:25 AM TOEING STOCKINGS Sexual Orientation Straight 06/30/2022 9: 25 AM TOEING STOCKINGS 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 on file COVID-19 Exposure Response Date Recorded In the last 10 days, have yo u been in contact with someone who was confirmed or suspected to have Coronavirus/COVID-19? No / Unsure 09/16/2022 2:04 PM TOEING STOCKINGS documented as of this encounter Functional Status [...] Description 02/28/2025 10:40 AM CDT Office Visit [facility] Medical Group Multispecialty [facility] [address] [address] [address] [place] [address] Sylvia Celis MD [address] [place] [address] documented as of this encounter Goals Goal [...] documented as of this encounter Care Teams Reservation Clerk Relationship Specialty Start Date End Date Sylvia Celis MD [address] [facility] [address] [place] [address] PCP - General INTERNAL MEDICINE 06/30/22 Yamil Whyte MD [facility]. [facility] [address] [place] [address] [place] Silo Erector CARDIOVASCULAR DISEASE 02/24/17 documented as of this encounter
--- OUTSIDE RECORDS SUMMARY | 2024-12-06 21:47 | XMS_ITS | Encounter Summary ---
Author Organization [facility] Address [address] [place] [address] Care Team Providers Care Plywood Scarfer Tender Name Role Phone Yamil Whyte MD Unavailable [phone] Sylvia Celis MD Primary Care Provider [phone] Encounter Details Date Type Department Care Team (Late st Contact Info) Description 09/07/2024 MyChart Message Enc [facility] Medical Group Multispecialty Care - [address] [address] [address] [place] [address] Sylvia Celis MD [address] [place] [address] [address] [place], [place] [id number] [employer] Social History Tobacco Use Types Packs/Day [...] Sex Assigned at Female 08/29/2024 2:06 PM PATTERNMAKER METAL BENCH Legal Sex Female 9:28 AM CDT Gender Identity Female 06/30/2022 9:25 AM PATTERNMAKER METAL BENCH Sexual Orientation Straight 06/30/2022 9: 25 AM PATTERNMAKER METAL BENCH Occupation Industry Job Start Date Job End [...] Description 02/28/2025 10:40 AM CDT Office Visit [facility] Medical Group Multispecialty Care - [address] [address] [address] [place] [address] Sylvia Celis MD [address] [place] [address] documented as of this encounter Goals Goal Patient Goal Type Associated Problems Recent Progress Patient-Stated? Author Consistently take medications as Prescribed General No Morteza Gonzales RN documented as of this encounter Visit Diagnoses Not on filedocumented in this encounter Additional Health Concerns Assessment Noted Time PHQ-9 Depression Total Score: 1 08/31/19 25 1:06 PM PATTERNMAKER METAL BENCH documented as of this encounter Care Teams Plywood Scarfer Tender Relationship Specialty Start Date End Date Sylvia Celis MD [address] [place] [address] PCP - General INTERNAL MEDICINE 06/30/22 Yamil Whyte MD Three [facility]. [id number] [place], [place] [id number] [place] Lead Developer CARDIOVASCULAR DISEASE 02/24/17 documented as of this encounter
--- OUTSIDE RECORDS SUMMARY | 2024-12-06 21:47 | XMS_ITS | Clinical Summary ---
Author Organization [facility] Address [address] [facility] [address] [place] [address] Phone Care Team Providers Care Spare Person Name Role Phone Lian Barker MD Primary [...] on file Legal Sex Female 8:46 PM FUNERAL ARRANGEMENT DIRECTOR Gender Identity Not on file Sexual Orientation [...] Plan of Treatment Not on file Insurance [facility] PPO MAIL HANDLERS Care Teams Spare Person Relationship Specialty Start Date End Date Lian Barker MD PCP - General 04/24/14
--- OUTSIDE RECORDS SUMMARY | 2024-12-06 21:47 | XMS_ITS | Encounter Summary ---
Author Organization [facility] Address [address] [place] [address] Care Team Providers Care Astronaut Mission Specialist Name Role Phone Yamil Whyte MD Unavailable [phone] Sylvia Celis MD Primary Care Provider [phone] Encounter Details Date Type Department Care Team (Latest Contact Info) Description 10/24/2022 Voya.get Message Enc [facility] Medical Group Multispecialty Care - [address] [address] [address] [place], [place] [id number] [place] [address] [place] [address] [address] [place] [address] Colonoscopy and Menopause Social History Tobacco Use Types Packs/Day Years [...] Sex Assigned at Female 08/29/2024 2:06 PM DIRECTOR CHEMISTRY Legal Sex Female 9:28 AM CDT Gender Identity Female 06/30/2022 9:25 AM DIRECTOR CHEMISTRY Sexual Orientation Straight 06/30/2022 9: 25 AM DIRECTOR CHEMISTRY Occupation Industry Job Start Date Job End [...] Description 02/28/2025 10:40 AM CDT Office Visit [facility] Medical Group Multispecialty Care - [address] [address] [address] [place] [address] Sylvia Celis MD [address] [place] [address] documented as of this encounter Goals Goal [...] documented as of this encounter Care Teams Astronaut Mission Specialist Relationship Specialty Start Date End Date Sylvia Celis MD [address] [facility] [address] [place] [address] PCP - General INTERNAL MEDICINE 06/30/22 Yamil Whyte MD Three [facility]. [facility] [address] [place] [address] [place] Process Development Associate CARDIOVASCULAR DISEASE 02/24/17 documented as of this encounter
--- OUTSIDE RECORDS SUMMARY | 2024-12-06 21:47 | XMS_ITS | Referral Summary ---
Author Organization [facility] Address [address] [facility] [address] [place] [address] Phone Care Team Providers Care Pet Sitter Name Role Phone Lian Barker MD Primary [...] on file Legal Sex Female 8:46 PM GASTROENTEROLOGIST Gender Identity Not on file Sexual Orientation [...] Plan of Treatment Not on file Insurance [facility] PPO MAIL HANDLERS Care Teams Pet Sitter Relationship Specialty Start Date End Date Lian Barker MD PCP - General 04/24/14
--- OUTSIDE RECORDS SUMMARY | 2024-12-06 21:47 | XMS_ITS | Encounter Summary ---
Author Organization [facility] Address [address] [place] [address] Care Team Providers Care Consulting Solution Manager Name Role Phone Yamil Whyte MD Unavailable [phone] Lian Barker MD Primary Care Provider None, Provider Primary Care Provider Unavaila Laurel Rain MD Primary Care Provider Sylvia Celis MD Primary Care Provider [phone] Encounter Details Date Type Department Care Team (Late st Contact Info) Description 06/09/2018 Abstract [facility] at [address] [address] Valeria Aguirre, [facility] Social History Tobacco Use Types Packs/Day Years Used Date Smoking Tobacco: Never Smokeless Tobacco: Never Alcohol Use Standard Drinks/Week Comments Yes 0 (1 standard drink = 0.6 oz pur e alcohol) occasional monthly Comments Unknown Sex and Gender Information Value Date Recorded Sex Assigned at Female 08/29/2024 2:06 PM PHYSICIST ASTROPHYSICS Legal Sex Female 9:28 AM CDT Gender Identity Female 06/30/2022 9:25 AM PHYSICIST ASTROPHYSICS Sexual Orientation Straight 06/30/2022 9: 25 AM PHYSICIST ASTROPHYSICS 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 on file documented as of this encounter Plan of Treatment Upcoming Encounters Date Type Department Care Team (Late st Contact Info) Description 02/28/2025 10:40 AM CDT Office Visit [facility] Medical Group Multispecialty [address] [place] [address] Sylvia Celis MD [address] [facility] [address] [place] [address] documented as of this encounter Procedures Procedure Name Priority Date/Time Associated Diagnosis Comments CMP (OUTSIDE LAB) Routine 05/08/2018 LIPID PANEL Routine 05/08/2018 documented in this encounter Results * CMP (OUTSIDE LAB) (05/08/2018) SODIUM S/P/B 140 POTASSIUM S/P/B 4.3 CHLORIDE S/P/B 104 CO2 26 BUN 14 CREATININE S/P/B 0.92 0.5 - 1.0 EGFR AFR. AMER. 85 <=90 CALCIUM S/P/B 9.6 GLUCOSE 88 mg/dL TOTAL PROTEIN S/P/B 7.7 ALBUMIN S/P/B 4.5 3.5 - 5.0 AST 18 ALT 13 ALKALINE PHOSPHATASE S/P/B 74 BILIRUBIN TOTAL S/P/B 0.5 05/08/2018 us Doc [facility] Abstract LAB-OUTSIDE/ABSTRACTED Final Result * LIPID PANEL (05/08/2018) CHOLESTEROL 95 HDL 45 TRIGLYCERIDES 54 NON HDL CHOLESTEROL 50 CHOL/HDL RATIO 2.1 LDL (CALCULATED) 37 05/08/2018 us Doc [facility] Abstract LABORATORY Final Result documented in this encounter Visit Diagnoses Not on filedocumented in this encounter Additional Health Concerns Infection Onset Date Last Indicated Resolved Time COVID-19 Rule Out 03/31/2024 03/31/2024 03/31/2024 3:02 AM CDT documented as of this encounter Care Teams Consulting Solution Manager Relationship Specialty Start Date End Date Lian Barker MD [address] [address] PCP - General FAMILY PRACTICE 03/27/17 06/10/22 None, MD Sae PCP - General UNKNOWN PHYSICIAN SPECIALTY 06/11/22 06/11/[address] [place] [address] [facility] [address] [place] [address] PCP - General INTERNAL MEDICINE 06/12/22 06/29/22 Sylvia Celis MD [address] [facility] [address] [place] [address] PCP - General INTERNAL MEDICINE 06/30/22 Yamil Whyte MD [facility] [address] [place] [address] [place] Regional Director Of Finance CARDIOVASCULAR DISEASE 02/24/17 documented as of this encounter
--- NOTE | 2024-12-06 21:50 | PC.NURSE ---
this RN attempts to get IV and blood work twice on patient without success. this RN asks Cinda DUVAL for assistance.
[2024-12-06] MEDS: SODIUM CHLORIDE 0.9% IV 2,000 ML 999 ML IV CONT (22:03)
[2024-12-06] MEDS: ONDANSETRON INJ 4 MG/2 ML VIAL IV PUSH (22:03)
[2024-12-06 22:17] LABS: Alanine Aminotransferase 26 U/L (6-35); Albumin Level 4.9 g/dL (3.5-5.1); Alkaline Phosphatase 111 U/L (38-126); Anion Gap 12 mmol/L (4-12); Aspartate Amino Transferase 39 U/L (14-36); Blood Urea Nitrogen 17 mg/dL (7-17); Calcium 9.6 mg/dL (8.4-10.2); Carbon Dioxide 21 mmol/L (22-30); Chloride 103 mmol/L (98-107); Estimated CRCL calculation 61 ml/min; Estimated Glomerular Filt Rate 49; Glucose 101 mg/dL (65-110); Lipase 151 U/L (23-300); Potassium 3.9 mmol/L (3.4-5.0); Sodium 136 mmol/L (137-145)
[2024-12-06 22:29] LABS: NT Pro B Type Natriuretic Pept < 20 pg/mL (19.9-100); Troponin I < 0.012 ng/mL (0.000-0.034)
[2024-12-06 22:34] LABS: Basophils Percent Auto 0.1 % (0.2-1.2); Eosinophils Percent Auto 0.4 % (0-4.4); Hematocrit 42.8 % (37.0-47.0); Immature Granulocyte Absolute 0.03 K/mm3 (0.00-0.031); Immature Granulocyte Percent A 0.4 % (0-0.5); Lymphocytes Percent Auto 13.7 % (18.3-44.2); Mean Corpuscular HGB Conc 32.7 g/dl (32-36); Mean Corpuscular Hemoglobin 27.2 pg (26-34); Mean Corpuscular Volume 83.3 fl (80-100); Mean Platelet Volume 11.8 fl (7.4-10.4); Monocytes Absolute Auto 0.3 K/mm3 (0.1-0.6); Monocytes Percent Auto 4.5 % (2.6-8.5); Neutrophils Absolute Auto 5.9 K/mm3 (1.3-6.7); Neutrophils Percent Auto 80.9 % (45.5-73.1); Platelet Count Result 217 k/mm3 (150-375); Red Blood Count 5.14 M/mm3 (4.2-5.4); Red Cell Distribution Width 12.7 % (11.5-14.5); White Blood Count 7.3 K/mm3 (4.5-10.0)
[2024-12-06 22:46] LABS: Prothrombin Time 13.6 Seconds (11.1-14.7)
[2024-12-06 22:47] LABS: Partial Thromboplastin Time 28.7 Seconds (22.3-36.8)
[2024-12-06 22:53] LABS: D Dimer 0.55 ug/mL (<0.48)
--- NOTE | 2024-12-06 23:04 | PC.NURSE ---
care and report given to SIMIN Krishnamurthy. all questions answered.
--- NOTE | 2024-12-06 23:28 | PC.NURSE ---
Assumed care of patient after receiving report from SIMIN Watson @ [phone]
[2024-12-06 23:36] LABS: Influenza A QL RT-PCR Negative (Negative); Influenza B QL RT-PCR Negative (Negative); RSV RNA, RT-PCR Negative (Negative); SARS-CoV-2 RNA PCR Negative (Negative)
[2024-12-06 23:49] LABS: NT Pro B Type Natriuretic Pept < 20 pg/mL (19.9-100)
--- NOTE | 2024-12-07 00:39 | PC.NURSE ---
ED Charge to obtain 3 hour trop due to patient being a hard stick.
[2024-12-07 00:40] VITALS: BP 124/84; PULSE 90; RESP 18
--- NOTE | 2024-12-07 01:00 | ECG_ITS ---
Test Date: 2024-12-07 00:40:19 Measurements Intervals [place] Rate: 92 P: 73 HI: 185 QRS: 35 QRSD: 87 T: 61 QT: 366 QTc: 453 Interpretive Statements SINUS RHYTHM LOW QRS VOLTAGE IN PRECORDIAL LEADS [QRS DEFLECTION < 1.0 mV IN CHEST LEADS] Compared to ECG 12/06/2024 21:07:49 Sinus tachycardia no longer present Electronically Signed On 12-07-2024 11:57:33 CDT by Ara Mcgee M.D.
[2024-12-07] MEDS: ACETAMINOPHEN 500 MG TABLET 1000 MG PO (01:16)
[2024-12-07] MEDS: MAG HYDROX/AL HYDROX/SIMETH 30 ML UDC PO (01:28)
[2024-12-07 01:50] LABS: Troponin I < 0.012 ng/mL (0.000-0.034)
[2024-12-07 02:32] VITALS: BP 119/82; PULSE 94; RESP 17; TEMP 36.8; O2SAT 100
== END 2024-12-07 02:35 | disposition home or self-care (01) ==
PROVIDERS: Emergency Provider Emergency Medicine; PCP Internal Medicine
DX: R11.2 Nausea with vomiting, unspecified (principal); Z20.822 Contact with and (suspected) exposure to COVID-19; R07.9 Chest pain, unspecified; R00.0 Tachycardia, unspecified
CPT/HCPCS: 36415; 71045; 80053; 83690; 83880; 84484; 85025; 85380; 85610; 85730; 87637; 93005; 96361; 96374; 99284; A9270; J2405; J7030